=== PATIENT | male | born 1945 | race Caucasian/White ===

== ENCOUNTER 2017-01-23 11:56 | Inpatient (IN) | payer MEDICARE, MEDICAID ==
[~2017-01-23] VITALS: Ht 172.7 cm; Wt 58.5 kg
[~2017-01-23 11:56] MED LIST: ARIP5TAB9 PO; ASPI81 PO; DULO60CA44 PO; GABA-529 PO; LEVO25TA9 PO; METF500T7 PO; PIOG45TA PO; QUET100T PO
[2017-01-23] MEDS ORDERED: LORazepam 1 MG TABLET PO PRN (12:45)
[2017-01-23] MEDS ORDERED: MAGNESIUM HYDROXIDE SUSPENSION 30 ML UDCUP PO PRN (12:45)
[2017-01-23] MEDS ORDERED: ACETAMINOPHEN 325 MG TABLET PO PRN (12:45)
[2017-01-23] MEDS ORDERED: MAG HYDROX/AL HYDROX/SIMETH ES 30 ML SUSPENSION UDCUP PO PRN (12:45)
[2017-01-23] MEDS ORDERED: PROMETHAZINE HCL 25 MG TABLET PO PRN (12:45)
[2017-01-23] MEDS ORDERED: GuaiFENesin/D-METHORPHAN [SUGAR-FREE] 200-20MG/10 ML SYRUP UDCUP PO PRN (12:45)
[2017-01-23] MEDS ORDERED: ZOLPIDEM TARTRATE 10 MG TABLET PO PRN (12:45)
[2017-01-23] MEDS ORDERED: QUEtiapine FUMARATE 100 MG TABLET PO PRN (12:45)
[2017-01-23] MEDS ORDERED: LOPERAMIDE HCL 2 MG CAPSULE PO PRN (12:45)
[2017-01-23] MEDS ORDERED: TUBERCULIN, PURIFIED PROTEIN DERIVATIVE 5 TU/0.1 ML SYG ID ONE (12:45)
[2017-01-23] MEDS ORDERED: HydrOXYzine PAMOATE 50 MG CAPSULE PO PRN (12:45)
[2017-01-23] MEDS ORDERED: GABAPENTIN 100 MG CAPSULE PO SCH (13:00)
[2017-01-23 13:01] VITALS: BP 116/70
[2017-01-23] MEDS: QUEtiapine FUMARATE 25 MG TABLET PO SCH ×2 (14:38→18:43)
[2017-01-23] MEDS ORDERED: PNEUMOCOCCAL VACCINE POLYVALENT 0.5 ML VIAL [PPSV23] IM ONE (15:30)
[2017-01-23] MEDS ORDERED: IBUPROFEN 600 MG TABLET PO PRN (15:45)
[2017-01-23 16:02] VITALS: BP 137/73
[2017-01-23] MEDS: THIAMINE HCL 100 MG TABLET PO SCH (16:39)
[2017-01-23] MEDS: MetFORMIN HCL 500 MG TABLET PO SCH (16:39)
[2017-01-23] MEDS: ACETAMINOPHEN/CODEINE 300-30 MG TABLET PO PRN (16:39)
[2017-01-23 17:32] LABS: GLUCOSE COMMENT 1 Received Meds; GLUCOSE,POINT OF CARE 108 MG/DL (70-110)
[2017-01-23] MEDS ORDERED: GLUCAGON,HUMAN RECOMBINANT 1 MG VIAL IM PRN (18:45)
[2017-01-23] MEDS: INSULIN ASPART 100 UNITS/ML SQ PRN (20:43)
[2017-01-23 20:46] LABS: GLUCOSE COMMENT 1 Received Meds; GLUCOSE,POINT OF CARE 168 MG/DL (70-110)
[2017-01-23] MEDS ORDERED: QUEtiapine FUMARATE 200 MG TABLET PO SCH (21:00)
[2017-01-24] MEDS: LEVOTHYROXINE SODIUM 25 MCG TABLET PO SCH (06:49)
[2017-01-24] MEDS: MetFORMIN HCL 500 MG TABLET PO SCH ×2 (06:49→16:29)
[2017-01-24 08:16] VITALS: BP 107/64
[2017-01-24] MEDS ORDERED: DULoxetine HCL 60 MG CAPSULE PO SCH (09:00)
[2017-01-24] MEDS: ASPIRIN 81 MG CHEWABLE TABLET PO SCH (09:46)
[2017-01-24] MEDS: MULTIVITAMINS WITH MINERALS, THERAPEUTIC TABLET PO SCH (09:46)
[2017-01-24] MEDS: DULoxetine HCL 20 MG CAPSULE PO SCH (09:46)
[2017-01-24] MEDS: FOLIC ACID 1 MG TABLET PO SCH (09:47)
[2017-01-24] MEDS: THIAMINE HCL 100 MG TABLET PO SCH ×2 (09:47→16:29)
[2017-01-24] MEDS: NALTREXONE HCL 50 MG TABLET PO SCH (09:47)
[2017-01-24] MEDS: QUEtiapine FUMARATE 25 MG TABLET PO SCH (09:57)
[2017-01-24] MEDS: ACETAMINOPHEN/CODEINE 300-30 MG TABLET PO PRN ×2 (09:57→16:29)
[2017-01-24 12:02] LABS: GLUCOSE,POINT OF CARE 90 MG/DL (70-110)
[2017-01-24 16:17] VITALS: BP 116/68
[2017-01-24 16:57] LABS: GLUCOSE COMMENT 1 Received Meds; GLUCOSE,POINT OF CARE 131 MG/DL (70-110)
[2017-01-24 17:16] VITALS: BP 110/66
[2017-01-24] MEDS: QUEtiapine FUMARATE 300 MG TABLET PO SCH (20:43)
[2017-01-24 21:06] LABS: GLUCOSE,POINT OF CARE 120 MG/DL (70-110)
[2017-01-25 05:55] VITALS: BP 109/64
[2017-01-25] MEDS: MetFORMIN HCL 500 MG TABLET PO SCH ×2 (06:35→16:53)
[2017-01-25] MEDS: LEVOTHYROXINE SODIUM 25 MCG TABLET PO SCH (06:35)
[2017-01-25 08:02] VITALS: BP 108/57
[2017-01-25 08:29] LABS: BASOPHILS # (AUTO) 0.01 K/uL (0.00-0.20); BASOPHILS % (AUTO) 0.2 % (0.0-2.0); EOSINOPHILS % (AUTO) 0.07 % (1.0-6.0); HEMATOCRIT 45.2 % (41-53); HEMOGLOBIN 15.4 g/dL (13.5-17.5); HEMOGLOBIN A1C 6.1 % (4.5-6.2); LYMPHOCYTES # (AUTO) 1.5 K/uL (1.0-4.8); LYMPHOCYTES % (AUTO) 27.1 % (22.0-44.0); MEAN CORPUSCULAR HEMOGLOBIN 31.6 pg (26.0-34.0); MEAN CORPUSCULAR VOLUME 93 fL (80-100); MONOCYTES # (AUTO) 0.4 K/uL (0.1-1.0); MONOCYTES % (AUTO) 7.7 % (2.0-9.0); NEUTROPHILS # (AUTO) 3.6 K/uL (1.8-7.7); NEUTROPHILS % (AUTO) 64.9 % (40.0-70.0); RED BLOOD CELL COUNT(AUTO) 4.87 MIL/uL (4.50-5.90); RED CELL DISTRIBUTION WIDTH 13.8 % (11.5-14.5); WHITE BLOOD COUNT (AUTO) 5.6 K/uL (4.5-11.0)
[2017-01-25 08:39] LABS: PLATELET COUNT (AUTO) 100 K/uL (150-450)
[2017-01-25 08:45] LABS: ALANINE AMINOTRANSFERASE 71 U/L (12-78); ALBUMIN 3.2 g/dL (3.4-5.0); ANION GAP 2 mmol/L (8-16); ASPARTATE AMINOTRANSFERASE 56 U/L (15-37); BILIRUBIN,TOTAL 0.5 mg/dL (0.1-1.0); CALCIUM, TOTAL 9.2 mg/dL (8.8-10.5); CARBON DIOXIDE 34 mmol/L (22-29); CHLORIDE 106 mmol/L (98-107); CHOL/HDL RATIO 2.3 (4.2-7.3); CREATININE 0.82 mg/dL (0.60-1.30); GLOMERULAR FILTR. RATE CALC > 60 mL/min (>60); POTASSIUM 5.1 mmol/L (3.5-5.1); SODIUM SERUM 142 mmol/L (136-145); THYROID STIMULATING HORMONE 0.55 uIU/mL (0.36-3.74); TOTAL PROTEIN, SERUM 6.9 g/dL (6.4-8.2); UREA NITROGEN, BLOOD 17 mg/dL (7-18)
[2017-01-25] MEDS: DULoxetine HCL 20 MG CAPSULE PO SCH (09:00)
[2017-01-25] MEDS: FOLIC ACID 1 MG TABLET PO SCH (09:00)
[2017-01-25] MEDS: NALTREXONE HCL 50 MG TABLET PO SCH (09:00)
[2017-01-25] MEDS: THIAMINE HCL 100 MG TABLET PO SCH ×2 (09:00→16:53)
[2017-01-25] MEDS: MULTIVITAMINS WITH MINERALS, THERAPEUTIC TABLET PO SCH (09:00)
[2017-01-25] MEDS: ASPIRIN 81 MG CHEWABLE TABLET PO SCH (09:00)
[2017-01-25] MEDS: ACETAMINOPHEN/CODEINE 300-30 MG TABLET PO PRN (12:59)
[2017-01-25 16:19] VITALS: BP 115/66
[2017-01-25 17:01] LABS: GLUCOSE COMMENT 1 Received Meds; GLUCOSE,POINT OF CARE 118 MG/DL (70-110)
[2017-01-25] MEDS: QUEtiapine FUMARATE 300 MG TABLET PO SCH (20:50)
[2017-01-25 21:27] LABS: GLUCOSE,POINT OF CARE 96 MG/DL (70-110)
[2017-01-26] MEDS: LEVOTHYROXINE SODIUM 25 MCG TABLET PO SCH (06:43)
[2017-01-26] MEDS: MetFORMIN HCL 500 MG TABLET PO SCH ×2 (06:43→16:08)
[2017-01-26 06:46] LABS: GLUCOSE,POINT OF CARE 134 MG/DL (70-110)
[2017-01-26 08:05] VITALS: BP 116/69
[2017-01-26] MEDS: NALTREXONE HCL 50 MG TABLET PO SCH (08:06)
[2017-01-26] MEDS: DULoxetine HCL 30 MG CAPSULE PO SCH (08:07)
[2017-01-26] MEDS: FOLIC ACID 1 MG TABLET PO SCH (08:07)
[2017-01-26] MEDS: THIAMINE HCL 100 MG TABLET PO SCH ×2 (08:07→16:09)
[2017-01-26] MEDS: MULTIVITAMINS WITH MINERALS, THERAPEUTIC TABLET PO SCH (08:07)
[2017-01-26] MEDS: ASPIRIN 81 MG CHEWABLE TABLET PO SCH (08:09)
[2017-01-26 11:30] VITALS: BP 117/70
[2017-01-26] MEDS: ACETAMINOPHEN/CODEINE 300-30 MG TABLET PO PRN (11:30)
[2017-01-26 11:33] LABS: GLUCOSE,POINT OF CARE 79 MG/DL (70-110)
[2017-01-26 16:00] VITALS: BP 132/69
[2017-01-26 17:07] LABS: GLUCOSE,POINT OF CARE 104 MG/DL (70-110)
[2017-01-26] MEDS: QUEtiapine FUMARATE 300 MG TABLET PO SCH (20:44)
[2017-01-26 20:57] LABS: GLUCOSE,POINT OF CARE 133 MG/DL (70-110)
[2017-01-27 06:37] VITALS: BP 106/65
[2017-01-27 06:37] LABS: GLUCOSE,POINT OF CARE 125 MG/DL (70-110)
[2017-01-27] MEDS: LEVOTHYROXINE SODIUM 25 MCG TABLET PO SCH (06:49)
[2017-01-27] MEDS: MetFORMIN HCL 500 MG TABLET PO SCH ×2 (06:49→16:35)
[2017-01-27] MEDS: IBUPROFEN 600 MG TABLET PO PRN ×2 (06:49→16:45)
[2017-01-27] MEDS: NALTREXONE HCL 50 MG TABLET PO SCH (08:03)
[2017-01-27] MEDS: THIAMINE HCL 100 MG TABLET PO SCH ×2 (08:03→16:35)
[2017-01-27] MEDS: MULTIVITAMINS WITH MINERALS, THERAPEUTIC TABLET PO SCH (08:04)
[2017-01-27] MEDS: DULoxetine HCL 30 MG CAPSULE PO SCH (08:04)
[2017-01-27] MEDS: ASPIRIN 81 MG CHEWABLE TABLET PO SCH (08:04)
[2017-01-27] MEDS: FOLIC ACID 1 MG TABLET PO SCH (08:04)
[2017-01-27 08:25] VITALS: BP 120/64
[2017-01-27 10:01] LABS: CREATINE KINASE, TOTAL 33 U/L (39-308)
[2017-01-27 11:27] LABS: GLUCOSE,POINT OF CARE 140 MG/DL (70-110)
[2017-01-27 16:36] VITALS: BP 111/63
[2017-01-27 17:02] LABS: GLUCOSE,POINT OF CARE 112 MG/DL (70-110)
[2017-01-27] MEDS: QUEtiapine FUMARATE 300 MG TABLET PO SCH (20:21)
[2017-01-27] MEDS: INSULIN ASPART 100 UNITS/ML SQ PRN (20:26)
[2017-01-27 20:27] LABS: GLUCOSE,POINT OF CARE 145 MG/DL (70-110)
[2017-01-28 05:39] VITALS: BP 119/73
[2017-01-28] MEDS: LEVOTHYROXINE SODIUM 25 MCG TABLET PO SCH (05:42)
[2017-01-28] MEDS: ACETAMINOPHEN/CODEINE 300-30 MG TABLET PO PRN (05:43)
[2017-01-28] MEDS: MetFORMIN HCL 500 MG TABLET PO SCH ×2 (06:42→16:47)
[2017-01-28 06:47] LABS: GLUCOSE,POINT OF CARE 126 MG/DL (70-110)
[2017-01-28] MEDS: ASPIRIN 81 MG CHEWABLE TABLET PO SCH (07:56)
[2017-01-28] MEDS: MULTIVITAMINS WITH MINERALS, THERAPEUTIC TABLET PO SCH (07:56)
[2017-01-28] MEDS: DULoxetine HCL 30 MG CAPSULE PO SCH (07:56)
[2017-01-28] MEDS: THIAMINE HCL 100 MG TABLET PO SCH ×2 (07:56→16:47)
[2017-01-28] MEDS: FOLIC ACID 1 MG TABLET PO SCH (07:57)
[2017-01-28] MEDS: NALTREXONE HCL 50 MG TABLET PO SCH (07:57)
[2017-01-28 08:31] VITALS: BP 122/62
[2017-01-28] MEDS: INSULIN ASPART 100 UNITS/ML SQ PRN (11:28)
[2017-01-28 11:38] LABS: GLUCOSE,POINT OF CARE 197 MG/DL (70-110)
[2017-01-28 16:22] VITALS: BP 116/68
[2017-01-28 17:17] LABS: GLUCOSE COMMENT 1 Received Meds; GLUCOSE,POINT OF CARE 139 MG/DL (70-110)
[2017-01-28] MEDS: QUEtiapine FUMARATE 300 MG TABLET PO SCH (20:36)
[2017-01-28 21:22] LABS: GLUCOSE,POINT OF CARE 112 MG/DL (70-110)
[2017-01-29 02:31] LABS: HEPATITIS Bs ANTIGEN SCREEN P Negative (Negative); HEPATITIS C AB SCREEN >11.0 s/co ratio (0.0-0.9)
[2017-01-29 06:36] VITALS: BP 108/62
[2017-01-29 06:47] LABS: GLUCOSE,POINT OF CARE 131 MG/DL (70-110)
[2017-01-29] MEDS: LEVOTHYROXINE SODIUM 25 MCG TABLET PO SCH (06:48)
[2017-01-29] MEDS: MetFORMIN HCL 500 MG TABLET PO SCH ×2 (06:48→16:47)
[2017-01-29 08:02] VITALS: BP 102/55
[2017-01-29] MEDS: MULTIVITAMINS WITH MINERALS, THERAPEUTIC TABLET PO SCH (08:16)
[2017-01-29] MEDS: THIAMINE HCL 100 MG TABLET PO SCH ×2 (08:16→16:47)
[2017-01-29] MEDS: NALTREXONE HCL 50 MG TABLET PO SCH (08:16)
[2017-01-29] MEDS: FOLIC ACID 1 MG TABLET PO SCH (08:18)
[2017-01-29] MEDS: ASPIRIN 81 MG CHEWABLE TABLET PO SCH (08:19)
[2017-01-29] MEDS ORDERED: DULoxetine HCL 20 MG CAPSULE PO SCH (09:00)
[2017-01-29] MEDS: INSULIN ASPART 100 UNITS/ML SQ PRN ×2 (11:26→20:37)
[2017-01-29 11:32] LABS: GLUCOSE,POINT OF CARE 153 MG/DL (70-110)
[2017-01-29 16:14] VITALS: BP 114/69
[2017-01-29 17:07] LABS: GLUCOSE COMMENT 1 Received Meds; GLUCOSE,POINT OF CARE 88 MG/DL (70-110)
[2017-01-29] MEDS: QUEtiapine FUMARATE 300 MG TABLET PO SCH (20:36)
[2017-01-29 20:57] LABS: GLUCOSE COMMENT 1 Received Meds; GLUCOSE,POINT OF CARE 185 MG/DL (70-110)
[2017-01-30] MEDS: MetFORMIN HCL 500 MG TABLET PO SCH ×2 (06:18→16:54)
[2017-01-30] MEDS: LEVOTHYROXINE SODIUM 25 MCG TABLET PO SCH (06:18)
[2017-01-30 06:22] LABS: GLUCOSE,POINT OF CARE 130 MG/DL (70-110)
[2017-01-30 06:51] VITALS: BP 134/61
[2017-01-30 08:02] VITALS: BP 124/63
[2017-01-30] MEDS: MULTIVITAMINS WITH MINERALS, THERAPEUTIC TABLET PO SCH (09:06)
[2017-01-30] MEDS: FOLIC ACID 1 MG TABLET PO SCH (09:06)
[2017-01-30] MEDS: NALTREXONE HCL 50 MG TABLET PO SCH (09:06)
[2017-01-30] MEDS: ASPIRIN 81 MG CHEWABLE TABLET PO SCH (09:06)
[2017-01-30] MEDS: THIAMINE HCL 100 MG TABLET PO SCH ×2 (09:06→16:54)
[2017-01-30] MEDS: DULoxetine HCL 60 MG CAPSULE PO SCH (09:07)
[2017-01-30 11:47] LABS: GLUCOSE,POINT OF CARE 109 MG/DL (70-110)
[2017-01-30 16:17] VITALS: BP 128/67
[2017-01-30 17:12] LABS: GLUCOSE COMMENT 1 Received Meds; GLUCOSE,POINT OF CARE 124 MG/DL (70-110)
[2017-01-30] MEDS: QUEtiapine FUMARATE 200 MG TABLET PO SCH (20:29)
[2017-01-30] MEDS: INSULIN ASPART 100 UNITS/ML SQ PRN (20:30)
[2017-01-30 20:47] LABS: GLUCOSE COMMENT 1 Received Meds; GLUCOSE,POINT OF CARE 151 MG/DL (70-110)
[2017-01-31 00:40] VITALS: BP 100/61
[2017-01-31 06:13] LABS: GLUCOSE,POINT OF CARE 122 MG/DL (70-110)
[2017-01-31] MEDS: MetFORMIN HCL 500 MG TABLET PO SCH ×2 (06:37→16:53)
[2017-01-31] MEDS: LEVOTHYROXINE SODIUM 25 MCG TABLET PO SCH (06:37)
[2017-01-31 08:15] VITALS: BP 120/65
[2017-01-31] MEDS: FOLIC ACID 1 MG TABLET PO SCH (09:23)
[2017-01-31] MEDS: MULTIVITAMINS WITH MINERALS, THERAPEUTIC TABLET PO SCH (09:23)
[2017-01-31] MEDS: ASPIRIN 81 MG CHEWABLE TABLET PO SCH (09:23)
[2017-01-31] MEDS: THIAMINE HCL 100 MG TABLET PO SCH ×2 (09:23→16:53)
[2017-01-31] MEDS: NALTREXONE HCL 50 MG TABLET PO SCH (09:23)
[2017-01-31] MEDS: DULoxetine HCL 60 MG CAPSULE PO SCH (09:23)
[2017-01-31] MEDS ORDERED: NALT50 PO (10:24)
[2017-01-31] MEDS ORDERED: QUET200T29 PO (10:24)
[2017-01-31] MEDS ORDERED: DULO60CA44 PO (10:24)
[2017-01-31] MEDS: INSULIN ASPART 100 UNITS/ML SQ PRN (11:16)
[2017-01-31 11:17] LABS: GLUCOSE,POINT OF CARE 169 MG/DL (70-110)
[2017-01-31 16:21] VITALS: BP 114/69
[2017-01-31 17:07] LABS: GLUCOSE COMMENT 1 Received Meds; GLUCOSE,POINT OF CARE 80 MG/DL (70-110)
[2017-01-31 20:11] LABS: GLUCOSE,POINT OF CARE 125 MG/DL (70-110)
[2017-01-31] MEDS: QUEtiapine FUMARATE 200 MG TABLET PO SCH (20:19)
[2017-02-01 07:12] VITALS: BP 127/57
[2017-02-01 07:13] LABS: GLUCOSE,POINT OF CARE 125 MG/DL (70-110)
[2017-02-01] MEDS: MetFORMIN HCL 500 MG TABLET PO SCH (07:13)
[2017-02-01] MEDS: LEVOTHYROXINE SODIUM 25 MCG TABLET PO SCH (07:13)
[2017-02-01 08:16] VITALS: BP 126/77
[2017-02-01] MEDS ORDERED: METF500T4 PO (08:40)
[2017-02-01] MEDS: MULTIVITAMINS WITH MINERALS, THERAPEUTIC TABLET PO SCH (09:00)
[2017-02-01] MEDS: FOLIC ACID 1 MG TABLET PO SCH (09:00)
[2017-02-01] MEDS: DULoxetine HCL 60 MG CAPSULE PO SCH (09:00)
[2017-02-01] MEDS: ASPIRIN 81 MG CHEWABLE TABLET PO SCH (09:00)
[2017-02-01] MEDS: THIAMINE HCL 100 MG TABLET PO SCH (09:00)
[2017-02-01] MEDS: NALTREXONE HCL 50 MG TABLET PO SCH (09:00)
== END 2017-02-01 09:59 | disposition home or self-care (01) | DRG 750 ==
LOC: B3A 12:15 → B2S 01-30 20:35
PROVIDERS: ADMIT Psychiatry & Neurology Psychiatry; ATTEND Psychiatry & Neurology Psychiatry
DX: F25.0 Schizoaffective disorder, bipolar type (principal); E46 Unspecified protein-calorie malnutrition; D69.6 Thrombocytopenia, unspecified; E11.9 Type 2 diabetes mellitus without complications; F10.20 Alcohol dependence, uncomplicated; G89.29 Other chronic pain; E03.9 Hypothyroidism, unspecified; B19.20 Unspecified viral hepatitis C without hepatic coma; M54.9 Dorsalgia, unspecified; Z65.3 Problems related to other legal circumstances; Z91.14 Patient's other noncompliance with medication regimen; Z28.21 Immunization not carried out because of patient refusal; Z79.899 Other long term (current) drug therapy; Z81.8 Family history of other mental and behavioral disorders
CPT/HCPCS: 80074; 82306; 82607; 82746; 82962; 83036; 83735; 84439; 84443; 86592; 90471

== ENCOUNTER 2017-02-05 11:09 | Inpatient (IN) | payer MEDICARE, MEDICAID ==
[2017-02-05] VITALS (8 sets, daily range): BP systolic 117–154; BP diastolic 71–92
[~2017-02-05] VITALS: Ht 175.3 cm; Wt 58.5 kg
[~2017-02-05 11:09] MED LIST changes: -ARIP5TAB9 PO; -GABA-529 PO; +METF500T4 PO; -METF500T7 PO; +NALT50 PO; -PIOG45TA PO; -QUET100T PO; +QUET200T29 PO
[2017-02-05] MEDS ORDERED: LORazepam 1 MG TABLET PO PRN (11:30)
[2017-02-05] MEDS ORDERED: MAG HYDROX/AL HYDROX/SIMETH ES 30 ML SUSPENSION UDCUP PO PRN (11:30)
[2017-02-05] MEDS ORDERED: MAGNESIUM HYDROXIDE SUSPENSION 30 ML UDCUP PO PRN (11:30)
[2017-02-05] MEDS ORDERED: ZOLPIDEM TARTRATE 10 MG TABLET PO PRN (11:30)
[2017-02-05] MEDS ORDERED: TUBERCULIN, PURIFIED PROTEIN DERIVATIVE 5 TU/0.1 ML SYG ID ONE (11:30)
[2017-02-05] MEDS ORDERED: QUEtiapine FUMARATE 100 MG TABLET PO PRN (11:30)
[2017-02-05] MEDS ORDERED: QUET200T PO (11:35)
[2017-02-05] MEDS ORDERED: NALT50 PO (11:35)
[2017-02-05] MEDS ORDERED: DULO60CA44 PO (11:35)
[2017-02-05 13:01] LABS: GLUCOSE,POINT OF CARE 185 MG/DL (70-110)
[2017-02-05] MEDS ORDERED: GLUCAGON,HUMAN RECOMBINANT 1 MG VIAL IM PRN (13:15)
[2017-02-05] MEDS ORDERED: PNEUMOCOCCAL VACCINE POLYVALENT 0.5 ML VIAL [PPSV23] IM ONE (13:15)
[2017-02-05] MEDS: ACETAMINOPHEN 325 MG TABLET PO PRN ×2 (13:20→18:15)
[2017-02-05] MEDS: NICOTINE 14 MG/24 HOUR PATCH TD SCH (13:25)
[2017-02-05] MEDS ORDERED: HydrOXYzine PAMOATE 50 MG CAPSULE PO PRN (15:45)
[2017-02-05] MEDS ORDERED: GuaiFENesin/D-METHORPHAN [SUGAR-FREE] 200-20MG/10 ML SYRUP UDCUP PO PRN (15:45)
[2017-02-05 16:47] LABS: GLUCOSE COMMENT 1 Received Meds; GLUCOSE,POINT OF CARE 93 MG/DL (70-110)
[2017-02-05] MEDS: MetFORMIN HCL 500 MG TABLET PO SCH (16:51)
[2017-02-05] MEDS: THIAMINE HCL 100 MG TABLET PO SCH (17:13)
[2017-02-05] MEDS: QUEtiapine FUMARATE 200 MG TABLET PO SCH (20:27)
[2017-02-05] MEDS: ACETAMINOPHEN/CODEINE 300-30 MG TABLET PO PRN (20:48)
[2017-02-05 23:11] LABS: GLUCOSE,POINT OF CARE 115 MG/DL (70-110)
[2017-02-06 06:26] LABS: GLUCOSE,POINT OF CARE 120 MG/DL (70-110)
[2017-02-06 06:42] VITALS: BP 130/70
[2017-02-06] MEDS: MetFORMIN HCL 500 MG TABLET PO SCH ×2 (06:48→16:45)
[2017-02-06 08:12] VITALS: BP 117/63
[2017-02-06 08:23] LABS: BASOPHILS % (AUTO) 0.2 % (0.0-2.0); EOSINOPHILS % (AUTO) 0 % (1.0-6.0); HEMOGLOBIN 14.1 g/dL (13.5-17.5); LYMPHOCYTES # (AUTO) 2.4 K/uL (1.0-4.8); LYMPHOCYTES % (AUTO) 37.6 % (22.0-44.0); MEAN CORPUSCULAR HEMOGLOBIN 31.4 pg (26.0-34.0); MEAN CORPUSCULAR HGB CONC 33.6 G/dL (31.0-37.0); MEAN CORPUSCULAR VOLUME 93 fL (80-100); MONOCYTES # (AUTO) 0.5 K/uL (0.1-1.0); MONOCYTES % (AUTO) 7.8 % (2.0-9.0); NEUTROPHILS # (AUTO) 3.5 K/uL (1.8-7.7); NEUTROPHILS % (AUTO) 54.4 % (40.0-70.0); PLATELET COUNT (AUTO) 125 K/uL (150-450); RED CELL DISTRIBUTION WIDTH 13.3 % (11.5-14.5); WHITE BLOOD COUNT (AUTO) 6.4 K/uL (4.5-11.0)
[2017-02-06 08:40] LABS: HEMOGLOBIN A1C 5.9 % (4.5-6.2)
[2017-02-06 08:56] LABS: ALANINE AMINOTRANSFERASE 83 U/L (12-78); ANION GAP 7 mmol/L (8-16); ASPARTATE AMINOTRANSFERASE 47 U/L (15-37); BILIRUBIN,TOTAL 0.5 mg/dL (0.1-1.0); CALCIUM, TOTAL 8.9 mg/dL (8.8-10.5); CARBON DIOXIDE 29 mmol/L (22-29); CHLORIDE 105 mmol/L (98-107); CHOL/HDL RATIO 1.8 (4.2-7.3); CREATININE 0.87 mg/dL (0.60-1.30); GLOMERULAR FILTR. RATE CALC > 60 mL/min (>60); POTASSIUM 5.1 mmol/L (3.5-5.1); SODIUM SERUM 141 mmol/L (136-145); THYROID STIMULATING HORMONE 2.97 uIU/mL (0.36-3.74); TOTAL PROTEIN, SERUM 6.4 g/dL (6.4-8.2); UREA NITROGEN, BLOOD 20 mg/dL (7-18)
[2017-02-06] MEDS ORDERED: NALTREXONE HCL 50 MG TABLET PO SCH (09:00)
[2017-02-06] MEDS: THIAMINE HCL 100 MG TABLET PO SCH ×2 (09:10→16:45)
[2017-02-06] MEDS: DULoxetine HCL 60 MG CAPSULE PO SCH (09:10)
[2017-02-06] MEDS: FOLIC ACID 1 MG TABLET PO SCH (09:10)
[2017-02-06] MEDS: MULTIVITAMINS WITH MINERALS, THERAPEUTIC TABLET PO SCH (09:10)
[2017-02-06] MEDS: NICOTINE 14 MG/24 HOUR PATCH TD SCH (09:10)
[2017-02-06 09:42] VITALS: BP 120/65
[2017-02-06] MEDS: ACETAMINOPHEN/CODEINE 300-30 MG TABLET PO PRN (09:43)
[2017-02-06 10:43] VITALS: BP 118/63
[2017-02-06 11:43] LABS: GLUCOSE,POINT OF CARE 120 MG/DL (70-110)
[2017-02-06] MEDS: ACAMPROSATE CALCIUM 333 MG DR TABLET PO SCH ×2 (13:00→17:01)
[2017-02-06 16:11] VITALS: BP 122/60
[2017-02-06] MEDS: INSULIN ASPART 100 UNITS/ML SQ PRN (18:59)
[2017-02-06] MEDS: QUEtiapine FUMARATE 200 MG TABLET PO SCH ×2 (21:00→21:10)
[2017-02-06 21:56] LABS: GLUCOSE,POINT OF CARE 148 MG/DL (70-110)
[2017-02-06 21:57] LABS: GLUCOSE,POINT OF CARE 89 MG/DL (70-110)
[2017-02-07 00:15] VITALS: BP 114/74
[2017-02-07] MEDS: ACETAMINOPHEN 325 MG TABLET PO PRN (00:27)
[2017-02-07 06:21] LABS: GLUCOSE,POINT OF CARE 103 MG/DL (70-110)
[2017-02-07] MEDS: ACETAMINOPHEN/CODEINE 300-30 MG TABLET PO PRN (06:36)
[2017-02-07 06:37] VITALS: BP 120/72
[2017-02-07] MEDS: MetFORMIN HCL 500 MG TABLET PO SCH ×2 (06:42→16:37)
[2017-02-07 08:30] VITALS: BP 125/60
[2017-02-07] MEDS: NICOTINE 14 MG/24 HOUR PATCH TD SCH (09:51)
[2017-02-07] MEDS: MULTIVITAMINS WITH MINERALS, THERAPEUTIC TABLET PO SCH (09:51)
[2017-02-07] MEDS: FOLIC ACID 1 MG TABLET PO SCH (09:51)
[2017-02-07] MEDS: THIAMINE HCL 100 MG TABLET PO SCH ×2 (09:51→16:37)
[2017-02-07] MEDS: ACAMPROSATE CALCIUM 333 MG DR TABLET PO SCH ×3 (09:52→16:37)
[2017-02-07] MEDS: DULoxetine HCL 60 MG CAPSULE PO SCH (09:55)
[2017-02-07 11:17] LABS: GLUCOSE,POINT OF CARE 117 MG/DL (70-110)
[2017-02-07 16:37] VITALS: BP 121/71
[2017-02-07 16:47] LABS: GLUCOSE,POINT OF CARE 132 MG/DL (70-110)
[2017-02-07] MEDS: QUEtiapine FUMARATE 200 MG TABLET PO SCH (21:00)
[2017-02-07 21:22] LABS: GLUCOSE,POINT OF CARE 149 MG/DL (70-110)
[2017-02-07] MEDS: INSULIN ASPART 100 UNITS/ML SQ PRN (21:27)
[2017-02-08 03:40] VITALS: BP 111/78
[2017-02-08] MEDS: ACETAMINOPHEN/CODEINE 300-30 MG TABLET PO PRN (03:42)
[2017-02-08] MEDS: MetFORMIN HCL 500 MG TABLET PO SCH ×2 (06:45→16:29)
[2017-02-08] MEDS: INSULIN ASPART 100 UNITS/ML SQ PRN ×2 (06:45→16:46)
[2017-02-08 07:12] LABS: GLUCOSE,POINT OF CARE 143 MG/DL (70-110)
[2017-02-08] MEDS: MULTIVITAMINS WITH MINERALS, THERAPEUTIC TABLET PO SCH (08:52)
[2017-02-08] MEDS: THIAMINE HCL 100 MG TABLET PO SCH ×2 (08:52→16:29)
[2017-02-08] MEDS: DULoxetine HCL 60 MG CAPSULE PO SCH (08:52)
[2017-02-08] MEDS: NICOTINE 14 MG/24 HOUR PATCH TD SCH (08:52)
[2017-02-08] MEDS: FOLIC ACID 1 MG TABLET PO SCH (08:52)
[2017-02-08] MEDS: ACAMPROSATE CALCIUM 333 MG DR TABLET PO SCH ×3 (08:53→16:29)
[2017-02-08 09:52] VITALS: BP 138/70
[2017-02-08 15:47] LABS: GLUCOSE,POINT OF CARE 97 MG/DL (70-110)
[2017-02-08 16:27] VITALS: BP 133/75
[2017-02-08 16:42] LABS: GLUCOSE,POINT OF CARE 148 MG/DL (70-110)
[2017-02-08] MEDS: QUEtiapine FUMARATE 200 MG TABLET PO SCH (21:00)
[2017-02-08 21:01] LABS: GLUCOSE,POINT OF CARE 100 MG/DL (70-110)
[2017-02-09 00:32] VITALS: BP 113/63
[2017-02-09 05:56] VITALS: BP 138/75
[2017-02-09] MEDS: ACETAMINOPHEN/CODEINE 300-30 MG TABLET PO PRN ×2 (06:00→16:23)
[2017-02-09 06:12] LABS: GLUCOSE,POINT OF CARE 114 MG/DL (70-110)
[2017-02-09] MEDS: MetFORMIN HCL 500 MG TABLET PO SCH ×2 (06:29→16:23)
[2017-02-09] MEDS: DULoxetine HCL 60 MG CAPSULE PO SCH (08:47)
[2017-02-09] MEDS: FOLIC ACID 1 MG TABLET PO SCH (08:47)
[2017-02-09] MEDS: THIAMINE HCL 100 MG TABLET PO SCH ×2 (08:47→16:23)
[2017-02-09] MEDS: ACAMPROSATE CALCIUM 333 MG DR TABLET PO SCH ×3 (08:47→16:23)
[2017-02-09] MEDS: NICOTINE 14 MG/24 HOUR PATCH TD SCH (08:47)
[2017-02-09] MEDS: MULTIVITAMINS WITH MINERALS, THERAPEUTIC TABLET PO SCH (08:47)
[2017-02-09 08:57] VITALS: BP 131/68
[2017-02-09] MEDS: INSULIN ASPART 100 UNITS/ML SQ PRN ×2 (11:45→20:35)
[2017-02-09 11:47] LABS: GLUCOSE,POINT OF CARE 147 MG/DL (70-110)
[2017-02-09 16:26] VITALS: BP 124/60
[2017-02-09 16:32] LABS: GLUCOSE COMMENT 1 Received Meds; GLUCOSE,POINT OF CARE 129 MG/DL (70-110)
[2017-02-09] MEDS: QUEtiapine FUMARATE 200 MG TABLET PO SCH (20:28)
[2017-02-09 20:37] LABS: GLUCOSE COMMENT 1 Received Meds; GLUCOSE,POINT OF CARE 172 MG/DL (70-110)
[2017-02-10] MEDS: MetFORMIN HCL 500 MG TABLET PO SCH ×2 (06:32→17:44)
[2017-02-10 06:37] LABS: GLUCOSE,POINT OF CARE 138 MG/DL (70-110)
[2017-02-10 06:53] VITALS: BP 111/69
[2017-02-10 09:07] VITALS: BP 117/64
[2017-02-10] MEDS: MULTIVITAMINS WITH MINERALS, THERAPEUTIC TABLET PO SCH (09:08)
[2017-02-10] MEDS: THIAMINE HCL 100 MG TABLET PO SCH ×2 (09:08→17:44)
[2017-02-10] MEDS: NICOTINE 14 MG/24 HOUR PATCH TD SCH (09:08)
[2017-02-10] MEDS: FOLIC ACID 1 MG TABLET PO SCH (09:08)
[2017-02-10] MEDS: DULoxetine HCL 60 MG CAPSULE PO SCH (09:08)
[2017-02-10] MEDS: ACAMPROSATE CALCIUM 333 MG DR TABLET PO SCH ×3 (09:08→17:44)
[2017-02-10] MEDS: INSULIN ASPART 100 UNITS/ML SQ PRN ×2 (10:51→17:54)
[2017-02-10 10:52] LABS: GLUCOSE COMMENT 1 Received Meds; GLUCOSE,POINT OF CARE 173 MG/DL (70-110)
[2017-02-10] MEDS: DULoxetine HCL 30 MG CAPSULE PO SCH (15:14)
[2017-02-10 16:00] VITALS: BP 101/61
[2017-02-10] MEDS: QUEtiapine FUMARATE 200 MG TABLET PO SCH (21:00)
[2017-02-11] VITALS: BP 114/68
[2017-02-11 00:17] LABS: GLUCOSE,POINT OF CARE 185 MG/DL (70-110)
[2017-02-11 00:17] LABS: GLUCOSE,POINT OF CARE 120 MG/DL (70-110)
[2017-02-11 06:02] LABS: GLUCOSE,POINT OF CARE 119 MG/DL (70-110)
[2017-02-11] MEDS: MetFORMIN HCL 500 MG TABLET PO SCH ×2 (06:33→17:15)
[2017-02-11 08:37] VITALS: BP 103/61
[2017-02-11] MEDS: ACAMPROSATE CALCIUM 333 MG DR TABLET PO SCH ×3 (09:03→17:16)
[2017-02-11] MEDS: NICOTINE 14 MG/24 HOUR PATCH TD SCH (09:03)
[2017-02-11] MEDS: FOLIC ACID 1 MG TABLET PO SCH (09:04)
[2017-02-11] MEDS: MULTIVITAMINS WITH MINERALS, THERAPEUTIC TABLET PO SCH (09:04)
[2017-02-11] MEDS: THIAMINE HCL 100 MG TABLET PO SCH ×2 (09:04→17:15)
[2017-02-11] MEDS: DULoxetine HCL 60 MG CAPSULE PO SCH (09:05)
[2017-02-11 11:17] LABS: GLUCOSE,POINT OF CARE 96 MG/DL (70-110)
[2017-02-11] MEDS ORDERED: QUET200T29 PO (14:45)
[2017-02-11] MEDS ORDERED: DULO60CA44 PO (14:45)
[2017-02-11] MEDS ORDERED: ACAM333T7 PO (14:45)
[2017-02-11] MEDS: DULoxetine HCL 30 MG CAPSULE PO SCH ×2 (15:05→15:26)
[2017-02-11 16:30] VITALS: BP 116/72
[2017-02-11] MEDS: ACETAMINOPHEN/CODEINE 300-30 MG TABLET PO PRN (16:30)
[2017-02-11 16:57] LABS: GLUCOSE,POINT OF CARE 87 MG/DL (70-110)
[2017-02-11 17:30] VITALS: BP 114/70
[2017-02-11] MEDS: QUEtiapine FUMARATE 200 MG TABLET PO SCH (20:39)
[2017-02-11 20:46] LABS: GLUCOSE,POINT OF CARE 128 MG/DL (70-110)
[2017-02-12 06:32] LABS: GLUCOSE,POINT OF CARE 124 MG/DL (70-110)
[2017-02-12] MEDS: MetFORMIN HCL 500 MG TABLET PO SCH (06:44)
[2017-02-12 07:24] VITALS: BP 107/68
[2017-02-12 08:25] VITALS: BP 101/60
[2017-02-12] MEDS: MULTIVITAMINS WITH MINERALS, THERAPEUTIC TABLET PO SCH (08:47)
[2017-02-12] MEDS: FOLIC ACID 1 MG TABLET PO SCH (08:47)
[2017-02-12] MEDS: ACAMPROSATE CALCIUM 333 MG DR TABLET PO SCH (08:47)
[2017-02-12] MEDS: THIAMINE HCL 100 MG TABLET PO SCH (08:47)
[2017-02-12] MEDS: NICOTINE 14 MG/24 HOUR PATCH TD SCH (08:48)
[2017-02-12] MEDS ORDERED: DULoxetine HCL 20 MG CAPSULE PO SCH (09:00)
== END 2017-02-12 10:00 | disposition home or self-care (01) | DRG 750 ==
LOC: B2S 12:02 → EDSTATUS 12:44 → B2S 02-08 19:07
PROVIDERS: ADMIT Psychiatry & Neurology Psychiatry; ATTEND Psychiatry & Neurology Psychiatry
PROC: 3E0234Z Introduction of Serum, Toxoid and Vaccine into Muscle, Percutaneous Approach (ICD-10-PCS; principal; 2017-02-06)
DX: F25.0 Schizoaffective disorder, bipolar type (principal); E11.40 Type 2 diabetes mellitus with diabetic neuropathy, unspecified; R45.851 Suicidal ideations; E11.9 Type 2 diabetes mellitus without complications; I10 Essential (primary) hypertension; E03.9 Hypothyroidism, unspecified; D64.9 Anemia, unspecified; F17.210 Nicotine dependence, cigarettes, uncomplicated; E78.5 Hyperlipidemia, unspecified; G89.29 Other chronic pain; M54.9 Dorsalgia, unspecified; F10.20 Alcohol dependence, uncomplicated; G43.909 Migraine, unspecified, not intractable, without status migrainosus; K21.9 Gastro-esophageal reflux disease without esophagitis; Z91.19 Patient's noncompliance with other medical treatment and regimen; Z23 Encounter for immunization; Z79.84 Long term (current) use of oral hypoglycemic drugs; Z79.899 Other long term (current) drug therapy; Z90.49 Acquired absence of other specified parts of digestive tract; Z98.890 Other specified postprocedural states
CPT/HCPCS: 82962; 83036; 84439; 84443; 86592; 87081; 90471

== ENCOUNTER 2017-05-14 20:30 | Emergency (ER) | payer MEDICARE, OTHER ==
[~2017-05-14] VITALS: Ht 172.7 cm; Wt 70.5 kg
[~2017-05-14 20:30] MED LIST changes: +ACAM333T7 PO; -ASPI81 PO; -LEVO25TA9 PO; -NALT50 PO
[2017-05-14 20:52] LABS: GLUCOSE,POINT OF CARE 175 MG/DL (70-110)
[2017-05-14 21:30] LABS: BASOPHILS # (AUTO) 0.02 K/uL (0.00-0.20); BASOPHILS % (AUTO) 0.3 % (0.0-2.0); EOSINOPHILS % (AUTO) 0 % (1.0-6.0); HEMATOCRIT 40.3 % (41-53); HEMOGLOBIN 13.5 g/dL (13.5-17.5); LYMPHOCYTES % (AUTO) 13.3 % (22.0-44.0); MEAN CORPUSCULAR HEMOGLOBIN 31.2 pg (26.0-34.0); MEAN CORPUSCULAR HGB CONC 33.4 G/dL (31.0-37.0); MEAN CORPUSCULAR VOLUME 93 fL (80-100); MONOCYTES # (AUTO) 0.6 K/uL (0.1-1.0); MONOCYTES % (AUTO) 7.7 % (2.0-9.0); NEUTROPHILS # (AUTO) 5.7 K/uL (1.8-7.7); NEUTROPHILS % (AUTO) 78.6 % (40.0-70.0); PLATELET COUNT (AUTO) 165 K/uL (150-450); RED BLOOD CELL COUNT(AUTO) 4.32 MIL/uL (4.50-5.90); WHITE BLOOD COUNT (AUTO) 7.3 K/uL (4.5-11.0)
[2017-05-14 21:41] LABS: ANION GAP 3 mmol/L (8-16); CALCIUM, TOTAL 9.2 mg/dL (8.8-10.5); CARBON DIOXIDE 34 mmol/L (22-29); CHLORIDE 102 mmol/L (98-107); CREATININE 0.86 mg/dL (0.60-1.30); GLOMERULAR FILTR. RATE CALC > 60 mL/min (>60); POTASSIUM 4.3 mmol/L (3.5-5.1); SODIUM SERUM 139 mmol/L (136-145); UREA NITROGEN, BLOOD 10 mg/dL (7-18)
[2017-05-14 22:46] VITALS: BP 147/80
== END 2017-05-14 23:51 | disposition home or self-care (01) ==
LOC: EMS 20:31
DX: F25.9 Schizoaffective disorder, unspecified (principal); I10 Essential (primary) hypertension; F32.9 Major depressive disorder, single episode, unspecified; E11.9 Type 2 diabetes mellitus without complications; F17.210 Nicotine dependence, cigarettes, uncomplicated
CPT/HCPCS: 36415; 80048; 82962; 85025; 99284; G0480

== ENCOUNTER 2017-11-28 10:09 | Inpatient (IN) | payer MEDICARE, MEDICAID ==
[~2017-11-28] VITALS: Ht 172.7 cm; Wt 57.2 kg
[~2017-11-28 10:09] MED LIST changes: -ACAM333T7 PO; -DULO60CA44 PO; -QUET200T29 PO
[2017-11-28] MEDS ORDERED: QUEtiapine FUMARATE 100 MG TABLET PO PRN ×2 (12:00→13:45)
[2017-11-28] MEDS ORDERED: ZOLPIDEM TARTRATE 10 MG TABLET PO PRN ×2 (12:00→13:45)
[2017-11-28] MEDS ORDERED: LORazepam 2 MG TABLET PO PRN ×2 (12:00→13:45)
[2017-11-28 12:54] VITALS: BP 122/68
[2017-11-28 13:12] VITALS: BP 124/77
[2017-11-28] MEDS ORDERED: LOPERAMIDE HCL 2 MG CAPSULE PO PRN (13:45)
[2017-11-28] MEDS ORDERED: MAGNESIUM HYDROXIDE SUSPENSION 30 ML UDCUP PO PRN (13:45)
[2017-11-28] MEDS ORDERED: ACETAMINOPHEN 325 MG TABLET PO PRN (13:45)
[2017-11-28] MEDS ORDERED: HydrOXYzine PAMOATE 50 MG CAPSULE PO PRN (13:45)
[2017-11-28] MEDS ORDERED: GuaiFENesin/D-METHORPHAN [SUGAR-FREE] 200-20MG/10 ML SYRUP UDCUP PO PRN (13:45)
[2017-11-28] MEDS ORDERED: PROMETHAZINE HCL 25 MG TABLET PO PRN (13:45)
[2017-11-28] MEDS ORDERED: TUBERCULIN, PURIFIED PROTEIN DERIVATIVE 5 TU/0.1 ML SYG ID ONE (13:45)
[2017-11-28] MEDS ORDERED: MAG HYDROX/AL HYDROX/SIMETH ES 30 ML SUSPENSION UDCUP PO PRN (13:45)
[2017-11-28 14:12] LABS: GLUCOMETER DEV NAME(LOC) BV2N3; GLUCOSE,POINT OF CARE 146 MG/DL (70-110)
[2017-11-28 16:29] VITALS: BP 115/70
[2017-11-28] MEDS: ACAMPROSATE CALCIUM 333 MG DR TABLET PO SCH (17:08)
[2017-11-28] MEDS: THIAMINE HCL 100 MG TABLET PO SCH (17:08)
[2017-11-28] MEDS: MetFORMIN HCL 500 MG TABLET PO SCH (17:08)
[2017-11-28] MEDS: ACETAMINOPHEN/CODEINE 300-30 MG TABLET PO PRN (17:13)
[2017-11-28] MEDS: QUEtiapine FUMARATE 100 MG TABLET PO SCH (21:00)
[2017-11-29 06:52] VITALS: BP 102/60
[2017-11-29] MEDS: MetFORMIN HCL 500 MG TABLET PO SCH ×2 (07:00→16:18)
[2017-11-29] MEDS: LEVOTHYROXINE SODIUM 25 MCG TABLET PO SCH (07:00)
[2017-11-29] MEDS: ASPIRIN 81 MG EC TABLET PO SCH (07:00)
[2017-11-29] MEDS: DULoxetine HCL 20 MG CAPSULE PO SCH ×2 (09:00→09:06)
[2017-11-29] MEDS ORDERED: DULoxetine HCL 20 MG CAPSULE PO SCH (09:00)
[2017-11-29] MEDS: NICOTINE 21 MG/24 HOUR PATCH TD SCH (09:05)
[2017-11-29] MEDS: FOLIC ACID 1 MG TABLET PO SCH (09:06)
[2017-11-29] MEDS: ACAMPROSATE CALCIUM 333 MG DR TABLET PO SCH ×3 (09:06→16:18)
[2017-11-29] MEDS: THIAMINE HCL 100 MG TABLET PO SCH ×2 (09:06→16:18)
[2017-11-29] MEDS: MULTIVITAMINS WITH MINERALS, THERAPEUTIC TABLET PO SCH (09:06)
[2017-11-29 09:25] VITALS: BP 119/62
[2017-11-29] MEDS: ACETAMINOPHEN/CODEINE 300-30 MG TABLET PO PRN ×2 (09:41→16:27)
[2017-11-29 16:17] VITALS: BP 110/65
[2017-11-29] MEDS: QUEtiapine FUMARATE 100 MG TABLET PO SCH (21:00)
[2017-11-30 01:23] VITALS: BP_SYST 109; BP_SYST 112; BP_DIAS 61
[2017-11-30] MEDS: ACETAMINOPHEN/CODEINE 300-30 MG TABLET PO PRN (03:14)
[2017-11-30] MEDS: MetFORMIN HCL 500 MG TABLET PO SCH ×2 (07:00→16:41)
[2017-11-30] MEDS: ASPIRIN 81 MG EC TABLET PO SCH (07:00)
[2017-11-30] MEDS: LEVOTHYROXINE SODIUM 25 MCG TABLET PO SCH (07:00)
[2017-11-30 08:27] VITALS: BP 114/64
[2017-11-30] MEDS: MULTIVITAMINS WITH MINERALS, THERAPEUTIC TABLET PO SCH (08:58)
[2017-11-30] MEDS: FOLIC ACID 1 MG TABLET PO SCH (08:58)
[2017-11-30] MEDS: ACAMPROSATE CALCIUM 333 MG DR TABLET PO SCH ×3 (08:58→16:42)
[2017-11-30] MEDS: THIAMINE HCL 100 MG TABLET PO SCH ×2 (08:58→16:41)
[2017-11-30] MEDS: NICOTINE 21 MG/24 HOUR PATCH TD SCH (08:59)
[2017-11-30] MEDS: DULoxetine HCL 20 MG CAPSULE PO SCH (09:00)
[2017-11-30 17:11] VITALS: BP 113/70
[2017-11-30] MEDS: QUEtiapine FUMARATE 100 MG TABLET PO SCH (21:00)
[2017-12-01 06:43] VITALS: BP 120/58
[2017-12-01] MEDS: ASPIRIN 81 MG EC TABLET PO SCH (07:10)
[2017-12-01] MEDS: LEVOTHYROXINE SODIUM 25 MCG TABLET PO SCH (07:10)
[2017-12-01] MEDS: MetFORMIN HCL 500 MG TABLET PO SCH ×2 (07:10→16:55)
[2017-12-01 08:35] VITALS: BP 114/66
[2017-12-01 08:46] LABS: BASOPHILS % (AUTO) 0.1 % (0.0-2.0); EOSINOPHILS % (AUTO) 0 % (1.0-6.0); HEMATOCRIT 45.7 % (41-53); HEMOGLOBIN 15.6 g/dL (13.5-17.5); LYMPHOCYTES # (AUTO) 1.5 K/uL (1.0-4.8); LYMPHOCYTES % (AUTO) 18.8 % (22.0-44.0); MEAN CORPUSCULAR HEMOGLOBIN 31.8 pg (26.0-34.0); MEAN CORPUSCULAR HGB CONC 34.2 G/dL (31.0-37.0); MEAN CORPUSCULAR VOLUME 93 fL (80-100); MONOCYTES # (AUTO) 0.7 K/uL (0.1-1.0); MONOCYTES % (AUTO) 8.3 % (2.0-9.0); NEUTROPHILS # (AUTO) 5.8 K/uL (1.8-7.7); NEUTROPHILS % (AUTO) 72.8 % (40.0-70.0); PLATELET COUNT (AUTO) 124 K/uL (150-450); RED BLOOD CELL COUNT(AUTO) 4.92 MIL/uL (4.50-5.90); RED CELL DISTRIBUTION WIDTH 13.1 % (11.5-14.5)
[2017-12-01 08:58] LABS: HEMOGLOBIN A1C 6.2 % (4.5-6.2)
[2017-12-01] MEDS: DULoxetine HCL 20 MG CAPSULE PO SCH (09:00)
[2017-12-01] MEDS: THIAMINE HCL 100 MG TABLET PO SCH ×2 (09:12→16:55)
[2017-12-01] MEDS: ACAMPROSATE CALCIUM 333 MG DR TABLET PO SCH ×3 (09:12→16:55)
[2017-12-01] MEDS: FOLIC ACID 1 MG TABLET PO SCH (09:13)
[2017-12-01] MEDS: NICOTINE 21 MG/24 HOUR PATCH TD SCH (09:13)
[2017-12-01] MEDS: MULTIVITAMINS WITH MINERALS, THERAPEUTIC TABLET PO SCH (09:13)
[2017-12-01 09:25] LABS: ALANINE AMINOTRANSFERASE 70 U/L (12-78); ALBUMIN 3.1 g/dL (3.4-5.0); ALKALINE PHOSPHATASE 98 U/L (46-116); ANION GAP 6 mmol/L (8-16); ASPARTATE AMINOTRANSFERASE 53 U/L (15-37); BILIRUBIN,TOTAL 0.8 mg/dL (0.1-1.0); CARBON DIOXIDE 30 mmol/L (22-29); CHLORIDE 101 mmol/L (98-107); CHOL/HDL RATIO 2.3 (4.2-7.3); CHOLESTEROL 109 mg/dL (131-200); CREATININE 0.79 mg/dL (0.60-1.30); FREE T4 (FREE THYROXINE) 1.07 ng/dL (0.76-1.46); GLOMERULAR FILTR. RATE CALC > 60 mL/min (>60); GLUCOSE,RANDOM 91 mg/dL (70-110); HDL CHOLESTEROL 47 mg/dL (40-60); LDL CHOL (CALC.) 42 mg/dL (0-130); POTASSIUM 4.5 mmol/L (3.5-5.1); SODIUM SERUM 137 mmol/L (136-145); TOTAL PROTEIN, SERUM 7.3 g/dL (6.4-8.2); TRIGLYCERIDES 102 mg/dL (15-150); UREA NITROGEN, BLOOD 25 mg/dL (7-18)
[2017-12-01 16:31] VITALS: BP 111/67
[2017-12-01] MEDS: ACETAMINOPHEN/CODEINE 300-30 MG TABLET PO PRN (16:31)
[2017-12-01] MEDS: QUEtiapine FUMARATE 100 MG TABLET PO SCH (20:45)
[2017-12-02 06:00] VITALS: BP 111/68
[2017-12-02] MEDS: LEVOTHYROXINE SODIUM 25 MCG TABLET PO SCH (06:26)
[2017-12-02] MEDS: ASPIRIN 81 MG EC TABLET PO SCH (06:27)
[2017-12-02] MEDS: MetFORMIN HCL 500 MG TABLET PO SCH ×2 (06:27→16:20)
[2017-12-02] MEDS: FOLIC ACID 1 MG TABLET PO SCH (08:53)
[2017-12-02] MEDS: ACAMPROSATE CALCIUM 333 MG DR TABLET PO SCH ×3 (08:53→16:20)
[2017-12-02] MEDS: THIAMINE HCL 100 MG TABLET PO SCH ×2 (08:53→16:20)
[2017-12-02] MEDS: NICOTINE 21 MG/24 HOUR PATCH TD SCH (08:53)
[2017-12-02] MEDS: MULTIVITAMINS WITH MINERALS, THERAPEUTIC TABLET PO SCH (08:53)
[2017-12-02] MEDS: DULoxetine HCL 20 MG CAPSULE PO SCH (09:00)
[2017-12-02] MEDS: ACETAMINOPHEN/CODEINE 300-30 MG TABLET PO PRN ×2 (09:15→16:20)
[2017-12-02 10:01] VITALS: BP 117/78
[2017-12-02] MEDS ORDERED: DULoxetine HCL 20 MG CAPSULE PO ONE (14:15)
[2017-12-02] MEDS ORDERED: ACAM333T7 PO ×2 (14:26→15:03)
[2017-12-02] MEDS ORDERED: LEVO25TA9 PO (15:01)
[2017-12-02] MEDS ORDERED: ASPI81 PO (15:02)
[2017-12-02 16:12] VITALS: BP 122/70
== END 2017-12-02 20:40 | disposition home or self-care (01) | DRG 750 ==
LOC: B2S 12:18
PROVIDERS: ADMIT Psychiatry & Neurology Psychiatry; ATTEND Psychiatry & Neurology Psychiatry
DX: F25.0 Schizoaffective disorder, bipolar type (principal); E11.42 Type 2 diabetes mellitus with diabetic polyneuropathy; B19.20 Unspecified viral hepatitis C without hepatic coma; G89.29 Other chronic pain; M54.9 Dorsalgia, unspecified; E03.9 Hypothyroidism, unspecified; G43.909 Migraine, unspecified, not intractable, without status migrainosus; Z91.19 Patient's noncompliance with other medical treatment and regimen; Z90.49 Acquired absence of other specified parts of digestive tract
CPT/HCPCS: 82962; 83036; 84436; 84439; 86592

== ENCOUNTER 2017-12-04 16:14 | Inpatient (IN) | payer MEDICARE, OTHER ==
[~2017-12-04 16:14] MED LIST changes: +ACAM333T7 PO; +ASPI81 PO; +LEVO25TA9 PO
[2017-12-04 17:00] VITALS: BP 118/64
[2017-12-04 19:02] LABS: BASOPHILS % (AUTO) 0.3 % (0.0-2.0); EOSINOPHILS % (AUTO) 0 % (1.0-6.0); HEMATOCRIT 42.6 % (41-53); HEMOGLOBIN 14.7 g/dL (13.5-17.5); LYMPHOCYTES # (AUTO) 1.7 K/uL (1.0-4.8); LYMPHOCYTES % (AUTO) 25.3 % (22.0-44.0); MEAN CORPUSCULAR HGB CONC 34.6 G/dL (31.0-37.0); MEAN CORPUSCULAR VOLUME 93 fL (80-100); MONOCYTES # (AUTO) 0.7 K/uL (0.1-1.0); MONOCYTES % (AUTO) 9.9 % (2.0-9.0); NEUTROPHILS # (AUTO) 4.4 K/uL (1.8-7.7); NEUTROPHILS % (AUTO) 64.5 % (40.0-70.0); PLATELET COUNT (AUTO) 122 K/uL (150-450); RED CELL DISTRIBUTION WIDTH 13.1 % (11.5-14.5)
[2017-12-04 19:11] LABS: PROTHROMBIN TIME 10.7 SEC (9.4-11.6)
[2017-12-04 19:15] LABS: ALANINE AMINOTRANSFERASE 73 U/L (12-78); ALBUMIN 3.1 g/dL (3.4-5.0); ALKALINE PHOSPHATASE 104 U/L (46-116); ANION GAP 8 mmol/L (8-16); ASPARTATE AMINOTRANSFERASE 48 U/L (15-37); BILIRUBIN,TOTAL 0.7 mg/dL (0.1-1.0); CALCIUM, TOTAL 8.4 mg/dL (8.8-10.5); CARBON DIOXIDE 30 mmol/L (22-29); CHLORIDE 106 mmol/L (98-107); CREATININE 0.74 mg/dL (0.60-1.30); GLOMERULAR FILTR. RATE CALC > 60 mL/min (>60); GLUCOSE,RANDOM 125 mg/dL (70-110); SODIUM SERUM 144 mmol/L (136-145); TOTAL PROTEIN, SERUM 6.8 g/dL (6.4-8.2); UREA NITROGEN, BLOOD 18 mg/dL (7-18)
[2017-12-04] MEDS ORDERED: INFLUENZA VIRUS VACCINE QVS 2017-18 (3YR+)/PF 60 MCG/0.5 ML SYRINGE IM ONE (19:15)
[2017-12-04 19:29] VITALS: BP 121/77
[2017-12-04 19:38] VITALS: BP 118/66
[2017-12-04] MEDS: ACAMPROSATE CALCIUM 333 MG DR TABLET PO SCH ×2 (20:37→20:42)
[2017-12-04] MEDS ORDERED: DEXTROSE 50%-WATER 25 GM/50 ML SYRINGE IVP PRN ×2 (21:30→22:30)
[2017-12-04] MEDS ORDERED: ONDANSETRON HCL 4 MG/2 ML VIAL IVP PRN (21:30)
[2017-12-04] MEDS ORDERED: BISACODYL 10 MG RECTAL RECTAL SUPPOSITORY PR PRN (21:30)
[2017-12-04] MEDS ORDERED: 0.9% SODIUM CHLORIDE 10 ML SYRINGE IVP PRN (21:30)
[2017-12-04] MEDS ORDERED: ZOLPIDEM TARTRATE 5 MG TABLET PO PRN (21:30)
[2017-12-04] MEDS: CefTRIAXone SODIUM 1 GM in DEXTROSE 5%-WATER 10 ML IV SCH (21:59)
[2017-12-04] MEDS ORDERED: INSULIN ASPART 100 UNITS/ML SQ PRN (22:30)
[2017-12-04] MEDS: HEPARIN SODIUM,PORCINE 5,000 UNITS/ML VIAL SQ SCH (23:05)
[2017-12-04 23:35] VITALS: BP 96/58
[2017-12-05 04:20] VITALS: BP 116/59
[2017-12-05 05:42] LABS: GLUCOMETER DEV NAME(LOC) 6N 2D; GLUCOSE,POINT OF CARE 87 MG/DL (70-110)
[2017-12-05] MEDS: LEVOTHYROXINE SODIUM 25 MCG TABLET PO SCH (05:55)
[2017-12-05] MEDS: ACETAMINOPHEN/CODEINE 300-30 MG TABLET PO PRN ×3 (05:55→17:51)
[2017-12-05 07:10] LABS: THYROID STIMULATING HORMONE 1.56 uIU/mL (0.36-3.74)
[2017-12-05 08:02] VITALS: BP 102/58
[2017-12-05] MEDS: ACAMPROSATE CALCIUM 333 MG DR TABLET PO SCH ×3 (08:04→20:37)
[2017-12-05] MEDS: DOCUSATE SODIUM 100 MG CAPSULE PO SCH ×2 (08:04→20:37)
[2017-12-05] MEDS: ASPIRIN 81 MG CHEWABLE TABLET PO SCH (08:04)
[2017-12-05] MEDS: PANTOPRAZOLE SODIUM 40 MG DR TABLET PO SCH (08:04)
[2017-12-05] MEDS: HEPARIN SODIUM,PORCINE 5,000 UNITS/ML VIAL SQ SCH ×3 (08:08→23:25)
[2017-12-05 11:35] VITALS: BP 130/59
[2017-12-05 14:52] LABS: GLUCOMETER DEV NAME(LOC) 6N 1E; GLUCOSE,POINT OF CARE 144 MG/DL (70-110)
[2017-12-05 15:59] VITALS: BP 124/61
[2017-12-05 18:53] LABS: GLUCOMETER DEV NAME(LOC) 6N 2D; GLUCOSE,POINT OF CARE 97 MG/DL (70-110)
[2017-12-05 19:57] VITALS: BP 122/61
[2017-12-05] MEDS: CefTRIAXone SODIUM 1 GM in DEXTROSE 5%-WATER 10 ML IV SCH (21:30)
[2017-12-05 23:48] VITALS: BP 110/55
[2017-12-06 04:35] VITALS: BP 127/62
[2017-12-06] MEDS: LEVOTHYROXINE SODIUM 25 MCG TABLET PO SCH (05:58)
[2017-12-06 06:07] LABS: GLUCOMETER DEV NAME(LOC) 6N 2D; GLUCOSE,POINT OF CARE 99 MG/DL (70-110)
[2017-12-06 06:58] LABS: GLUCOMETER DEV NAME(LOC) 6N 1E; GLUCOSE,POINT OF CARE 103 MG/DL (70-110)
[2017-12-06 06:58] LABS: GLUCOMETER DEV NAME(LOC) 6N 1E; GLUCOSE,POINT OF CARE 125 MG/DL (70-110)
[2017-12-06 07:20] VITALS: BP 135/68
[2017-12-06] MEDS: HEPARIN SODIUM,PORCINE 5,000 UNITS/ML VIAL SQ SCH (07:51)
[2017-12-06] MEDS: ASPIRIN 81 MG CHEWABLE TABLET PO SCH (07:51)
[2017-12-06] MEDS: DOCUSATE SODIUM 100 MG CAPSULE PO SCH (07:51)
[2017-12-06] MEDS: ACAMPROSATE CALCIUM 333 MG DR TABLET PO SCH (07:51)
[2017-12-06] MEDS: PANTOPRAZOLE SODIUM 40 MG DR TABLET PO SCH (07:51)
== END 2017-12-06 10:40 | disposition home or self-care (01) | DRG 690 ==
LOC: 6N 16:15
PROVIDERS: ADMIT Internal Medicine; ATTEND Internal Medicine
DX: N10 Acute pyelonephritis (principal); E11.9 Type 2 diabetes mellitus without complications; F20.9 Schizophrenia, unspecified; E86.0 Dehydration; E03.9 Hypothyroidism, unspecified; F17.200 Nicotine dependence, unspecified, uncomplicated; M54.9 Dorsalgia, unspecified; G89.29 Other chronic pain; Z79.82 Long term (current) use of aspirin; Z79.84 Long term (current) use of oral hypoglycemic drugs; Z79.899 Other long term (current) drug therapy
CPT/HCPCS: 71046; 82962; 83036; 83735; 84443; 87040; 87086; J0696; J1644; J7060